=== PATIENT | male | born 1995 | race Caucasian/White ===

== ENCOUNTER 2017-07-20 01:59 | Emergency (ER) | payer BC ==
[~2017-07-20] VITALS: Ht 182.9 cm; Wt 71.7 kg
[2017-07-20 02:07] VITALS: TEMP 36.9; Ht 182.9 cm; Wt 71.7 kg
[2017-07-20] MEDS ORDERED: SODIUM CHLORIDE 0.9% 1000ML 1,000 ML IV STA (02:30)
[2017-07-20] MEDS ORDERED: GI COCKTAIL PO STA (02:30)
[2017-07-20] MEDS ORDERED: RANITIDINE HCL SYRUP 150 MG/10 ML UDC PO ONE (02:30)
[2017-07-20] MEDS ORDERED: ONDANSETRON INJ 2 MG/ML 2 ML VIAL IV STA (02:30)
[2017-07-20] MEDS ORDERED: LIDOCAINE HCL 2% VISC SOLN 20 ML UDC ONE (02:35)
[2017-07-20] MEDS ORDERED: ALUMINUM/MAGNESIUM SUSP 30 ML UDC ONE (02:35)
[2017-07-20 02:52] LABS: HEMATOCRIT 42.4 % (42-52); MEAN CELL VOLUME 87.1 fL (80-100); MEAN CORPUSCULAR HEMOGLOBIN 30.4 pg (25-34); MEAN CORPUSCULAR HGB CONC 34.9 g/dl (32-36); MEAN PLATELET VOLUME 10.1 fL (7.4-10.4); PLATELET COUNT 193 K/uL (130-400); RED BLOOD COUNT 4.87 M/uL (4.7-6.1)
--- NOTE | 2017-07-20 02:52 | EMERGENCY ROOM VISIT NOTE ---
History Report prepared by Ana: Brenda Olguin Under the Supervision of: Dr. Jose Maria Caceres M.D. First contact with patient: 02:21 Chief Complaint: ABDOMINAL PAIN Stated Complaint: THROWING UP BLOOD,STOMACH PAIN Nursing Triage Summary: states he went out to have a cigar and coughed up some blood.c/o abd pain. History of Present Illness The patient is a 22 year old male who presents to the Emergency Room with complaints of persistent abdominal pain starting this evening. The patient went out to smoke a cigar. He has smoked cigars before, but it has been about a year. He took a puff and he started feeling unwell. He sat down with upper mid abdominal pain. Around 2 hours later, he tried drinking some water and began feeling nauseous. He then vomited. At first there was no blood, but later he found some blood in his vomit. He was not vomiting hard. He denies any lower abdominal pain, melena, or hematochezia. He reports feeling very fatigued. He denies any marijuana use. He has never vomited blood before. He denies any recent sports, trauma, or injury. He is not on any medications regularly. Source of History: patient Onset: this evening Position: abdomen (upper) Quality: other (pain) Timing: other (persistent) Associated Symptoms: + nausea, + vomiting, + fatigue, No melena, No hematochezia Review of Systems See HPI for pertinent positives & negatives. A total of 10 systems reviewed and were otherwise negative. Past Medical & Surgical Medical Problems: (1) No chronic problems Family History No pertinent family history stated. Social History Smoking Status: Current Some Day Smoker Occupation Status: [employer] student Current/Historical Medications No Active Prescriptions or Reported Meds Allergies Coded Allergies: Animal Dander (Verified Allergy, Intermediate, CONGESTION, 07/20/17) Dust (Verified Allergy, Intermediate, CONGESTION, 07/20/17) Molds and Smuts (Verified Allergy, Intermediate, CONGESTION, 07/20/17) Physical Exam Vital Signs Date Time Temp Pulse Resp B/P (MAP) Pulse Ox O2 Delivery O2 Flow Rate FiO2 07/20/17 03:40 63 16 121/63 99 Room Air 07/20/17 03:32 79 18 124/70 99 Room Air 07/20/17 02:45 57 16 112/59 97 Room Air 07/20/17 02:07 36.9 65 18 110/71 99 Room Air Physical Exam GENERAL: Patient is tired appearing and in minimal distress. HEENT: No acute trauma, normocephalic atraumatic, mucous membranes moist, no nasal congestion, no scleral icterus, injected conjunctiva. NECK: No stridor, no adenopathy, no meningismus, trachea is midline. LUNGS: No dyspnea. Clear to auscultation and equal bilaterally. No wheeze, no rhonchi. HEART: Regular rate and rhythm. No murmurs, rubs, gallops appreciated. ABDOMEN: Soft, mild epigastric tenderness to palpation, bowel sounds positive, no masses appreciated, no peritonitis. BACK: No midline tenderness, no CVA tenderness EXTREMITIES: Normal motion all extremities, no cyanosis, no edema. NEUROLOGIC: Alert and oriented, no acute motor or sensory deficits, no focal weakness, cranial nerves grossly intact. SKIN: No rash, no jaundice, no diaphoresis. Medical Decision & Procedures Laboratory Results 07/20/17 02:35 Red Blood Count 4.87, Mean Corpuscular Volume 87.1, Mean Corpuscular Hemoglobin 30.4, Mean Corpuscular Hemoglobin Concent 34.9, Mean Platelet Volume 10.1, Neutrophils (%) (Auto) 83.9, Lymphocytes (%) (Auto) 8.1, Monocytes (%) (Auto) 7.2, Eosinophils (%) (Auto) 0.4, Basophils (%) (Auto) 0.1, Neutrophils # (Auto) 11.49, Lymphocytes # (Auto) 1.11, Monocytes # (Auto) 0.99, Eosinophils # (Auto) 0.06, Basophils # (Auto) 0.01 07/20/17 02:35 Test 07/20/17 02:35 White Blood Count 13.70 K/uL (4.8-10.8) Red Blood Count 4.87 M/uL (4.7-6.1) Hemoglobin 14.8 g/dL (14.0-18.0) Hematocrit 42.4 % (42-52) Mean Corpuscular Volume 87.1 fL (80-100) Mean Corpuscular Hemoglobin 30.4 pg (25-34) Mean Corpuscular Hemoglobin Concent 34.9 g/dl (32-36) Platelet Count 193 K/uL (130-400) Mean Platelet Volume 10.1 fL (7.4-10.4) Neutrophils (%) (Auto) 83.9 % Lymphocytes (%) (Auto) 8.1 % Monocytes (%) (Auto) 7.2 % Eosinophils (%) (Auto) 0.4 % Basophils (%) (Auto) 0.1 % Neutrophils # (Auto) 11.49 K/uL (1.4-6.5) Lymphocytes # (Auto) 1.11 K/uL (1.2-3.4) Monocytes # (Auto) 0.99 K/uL (0.11-0.59) Eosinophils # (Auto) 0.06 K/uL (0-0.5) Basophils # (Auto) 0.01 K/uL (0-0.2) RDW Standard Deviation 42.3 fL (36.4-46.3) RDW Coefficient of Variation 13.3 % (11.5-14.5) Immature Granulocyte % (Auto) 0.3 % Immature Granulocyte # (Auto) 0.04 K/uL (0.00-0.02) Anion Gap 8.0 mmol/L (3-11) Est Creatinine Clear Calc Drug Dose 121.9 ml/min Estimated GFR () 128.1 Estimated GFR (Non- 110.5 BUN/Creatinine Ratio 20.9 (10-20) Calcium Level 8.6 mg/dl (8.5-10.1) Total Bilirubin 0.4 mg/dl (0.2-1) Direct Bilirubin 0.1 mg/dl (0-0.2) Aspartate Amino Transf (AST/SGOT) 12 U/L (15-37) Alanine Aminotransferase (ALT/SGPT) 18 U/L (12-78) Alkaline Phosphatase 107 U/L (45-117) Total Protein 7.1 gm/dl (6.4-8.2) Albumin 4.1 gm/dl (3.4-5.0) Lipase 86 U/L (73-393) Laboratory results as reviewed by me. Medications Administered Medications (Trade) Dose Ordered Sig/Pauline Route Start Time Stop Time Status Last Admin Dose Admin Ranitidine HCl (zANTac SYRUP) 150 mg NOW ONCE PO 07/20/17 02:30 07/20/17 02:32 DC 07/20/17 02:41 150 MG Ondansetron HCl (Zofran Inj) 4 mg NOW STAT IV 07/20/17 02:30 07/20/17 02:32 DC 07/20/17 02:41 4 MG Sodium Chloride 1,000 ml @ 999 mls/hr Q1H1M STAT IV 07/20/17 02:30 07/20/17 03:30 DC 07/20/17 02:41 999 MLS/HR Al Hydroxide/Mg Hydroxide (Maalox Susp) 30 ml STK-MED ONCE .ROUTE 07/20/17 02:35 07/20/17 02:36 DC 07/20/17 02:42 30 ML Lidocaine HCl (Viscous Lidocaine 2% Soln) 20 ml STK-MED ONCE .ROUTE 07/20/17 02:35 07/20/17 02:36 DC 07/20/17 02:42 20 ML Ondansetron HCl (ZOFRAN ODT 4MG Home Pack) 1 homepack UD ONCE PO 07/20/17 03:45 07/20/17 03:46 DC 07/20/17 03:43 1 HOMEPACK ED Course 0222: The patient was evaluated in room B2. A complete history and physical exam was performed. 0230: NSS 1000 ml @ 999 mls/hr IV, Zofran Inj 4 mg IV, Ranitidine HCl 150 mg PO. 0235: Lidocaine HCl 20 ml PO, Maalox Susp 30 ml PO. 0330: I reevaluated the patient. He is feeling much better. He now admits to sitting in a room with people smoking marijuana. He still maintains that he was only smoking a cigar. I discussed the results with him. He verbalized agreement of the treatment plan. He was discharged home. 0345: Zofran Odt 4 mg 1 homepack PO. Medical Decision Differential: Gastroenteritis, Food Borne, Esophageal Perforation, , Electrolyte Abnormality, Dehydration, Intraabdominal Infection, UTI/ Pyelonephritis, Bowel Obstruction, Biliary Pathology, amongst other pathology entertained. 22 yr old male with nausea, vomiting, epigastric pain after smoking a cigar in room with people smoking marijuana. Exam is benign other than mild epigastric TTP. No peritonitis. Afebrile. Just mild WBC elevation consistent with vomiting and some dehydration. Complete resolution with gi cocktail. Says he feels much better and has anti-acid at home (thinks Zantac). Advised BID for 1 week. With report of blood on subsequent vomiting but not initially suspect anju medina. No indication for CT abdo at this time given soft abdomen, resolution of pain. Medication Reconcilliation Current Medication List: was personally reviewed by me Blood Pressure Screening Patient's blood pressure: Normal blood pressure Blood pressure disposition: Did not require urgent referral Impression Primary Impression: Vomiting Additional Impression: Anju-Medina tear Scribe Attestation The scribe's documentation has been prepared under my direction and personally reviewed by me in its entirety. I confirm that the note above accurately reflects all work, treatment, procedures, and medical decision making performed by me. Departure Information Dispostion Home / Self-Care Prescriptions No Active Prescriptions or Reported Meds Referrals No Doctor, Assigned (PCP) Patient Instructions Anju Medina Tear, [facility] Additional Instructions Take Anti-Acid twice daily for the next week. Zantac, Pepcid, Omeprazole are all examples. Avoid spicy foods, tomato based foods, alcohol, Ibuprofen (Nsaids) and excessive caffeine. Problem Qualifiers
[2017-07-20 03:09] LABS: BUN/CREATININE RATIO 20.9 (10-20); CALCIUM 8.6 mg/dl (8.5-10.1); CREATININE 0.98 mg/dl (0.60-1.40); POTASSIUM 3.8 mmol/L (3.5-5.1)
[2017-07-20 03:38] LABS: BASO % 0.1 %; BASO ABS # 0.01 K/uL (0-0.2); COMPLETE YES; EOS % 0.4 %; IG% 0.3 %; LYMPH % 8.1 %; LYMPH ABS # 1.11 K/uL (1.2-3.4); MONO % 7.2 %; NEUT % 83.9 %
[2017-07-20 03:40] VITALS: BP 121/63; PULSE 63; O2SAT 99
[2017-07-20] MEDS ORDERED: ONDANSETRON HOME PACK 4MG OD TAB PO ONE (03:45)
== END 2017-07-20 03:47 | disposition home or self-care (01) ==
LOC: C.EDB 02:01
DX: R11.2 Nausea with vomiting, unspecified (principal); K22.6 Gastro-esophageal laceration-hemorrhage syndrome; F17.210 Nicotine dependence, cigarettes, uncomplicated